=== PATIENT | female | born 1950 | race Caucasian/White ===

== ENCOUNTER 2022-06-17 15:27 | Inpatient (IN) ==
[2022-06-17 17:43] LABS: Calcium 9.2 MG/DL (8.5-10.1); Osmolality,Calculated 283.7 MOS/KG (273-304); Potassium 4.4 MMOL/L (3.5-5.1)
[2022-06-17 17:44] LABS: Basophils % 0.3 % (0.0-0.8); Eosinophils # 0.1 10*3/uL (0.0-0.87); Eosinophils % 1.6 % (0.00-10.9); Hematocrit 35.4 VOL% (35.7-47.0); Hemoglobin 10.1 GM/DL (12.0-16.0); Immature Granulocytes % 0.3 %; Immature Granulocytes Absolute 0.02 #; Lymphocytes % 12.8 % (21.3-54.2); Mean Corpuscular HGB Conc 28.5 GM/DL (32-36); Mean Corpuscular Volume 76.5 FL (87-102); Mean Platelet Volume 10.9 FL (9.6-12.0); Monocytes # 0.6 10*3/uL (0.11-0.8); Monocytes % 7.8 % (1.7-12.7); Neutrophils % 77.2 % (38.7-73.9); Platelet Count 269 T/CUMM (130-400); Red Blood Count 4.63 MC/CUMM (3.8-5.5); Red Cell Distribution Width 16.2 % (9.3-17.3); White Blood Count 7.6 T/CUMM (4-12)
[2022-06-17] MEDS ORDERED: MORPHINE 2 MG/1 ML SYRINGE IV STA (18:17)
[2022-06-17] MEDS ORDERED: FUROSEMIDE 40 MG/4 ML VIAL IV STA ×2 (18:17→19:48)
[2022-06-17] MEDS ORDERED: ONDANSETRON 4 MG/2 ML VIAL IV STA (18:17)
[2022-06-17] MEDS ORDERED: ACETAMINOPHEN 325 MG TABLET PO PRN (19:44)
[2022-06-17] MEDS ORDERED: NITROGLYCERIN SL 0.4 MG TABLET SL PRN (19:47)
[2022-06-17] MEDS ORDERED: ENOXAPARIN 40 MG/0.4 ML SYRINGE SUBCUT SCH (21:00)
[2022-06-17 22:18] LABS: Calcium 9.3 MG/DL (8.5-10.1); Potassium 4.1 MMOL/L (3.5-5.1)
[2022-06-17] MEDS: OSELTAMIVIR 30 MG CAPSULE PO SCH (22:43)
[2022-06-17] MEDS: ATORVASTATIN 80 MG TABLET PO SCH (22:44)
[2022-06-18 05:18] LABS: Basophils % 0.4 % (0.0-0.8); Eosinophils # 0.3 10*3/uL (0.0-0.87); Mean Corpuscular Volume 76.2 FL (87-102)
[2022-06-18 05:58] LABS: Hemoglobin 8.8 GM/DL (12.0-16.0); Immature Granulocytes % 0.6 %; Immature Granulocytes Absolute 0.04 #; Lymphocytes # 1.3 10*3/uL (1.4-4.0); Lymphocytes % 18.1 % (21.3-54.2); Mean Corpuscular HGB Conc 28.6 GM/DL (32-36); Mean Platelet Volume 10.7 FL (9.6-12.0); Monocytes # 0.8 10*3/uL (0.11-0.8); Monocytes % 11.6 % (1.7-12.7); Neutrophils % 65.3 % (38.7-73.9); Platelet Count 226 T/CUMM (130-400); Red Blood Count 4.04 MC/CUMM (3.8-5.5); Red Cell Distribution Width 16.2 % (9.3-17.3); White Blood Count 7.1 T/CUMM (4-12)
[2022-06-18 06:00] LABS: Hematocrit 30.8 VOL% (35.7-47.0)
[2022-06-18 06:09] LABS: Risk Ratio 2.64; Thyroid Stimulating Hormone 1.41 uIU/ml (0.358-3.74); VLDL Cholesterol 20.8 MG/DL
[2022-06-18] MEDS ORDERED: carvediloL 12.5 MG TABLET PO SCH (08:00)
[2022-06-18] MEDS ORDERED: CLOPIDOGREL 75 MG TABLET PO SCH (09:00)
[2022-06-18] MEDS: FUROSEMIDE 40 MG/4 ML VIAL IV SCH ×2 (10:20→17:39)
[2022-06-18] MEDS: OSELTAMIVIR 30 MG CAPSULE PO SCH ×2 (10:21→22:49)
[2022-06-18] MEDS: PANTOPRAZOLE 40 MG TABLET PO SCH (10:21)
[2022-06-18] MEDS: SERTRALINE 100 MG TABLET PO SCH (10:21)
[2022-06-18] MEDS: DAPAGLIFLOZIN 10 MG TABLET PO SCH (10:21)
[2022-06-18] MEDS: APIXABAN 5 MG TABLET PO SCH ×2 (10:21→22:48)
[2022-06-18] MEDS: SOTALOL 80 MG TABLET PO SCH ×2 (10:21→22:49)
[2022-06-18] MEDS: ASPIRIN EC 81 MG TABLET PO SCH (10:21)
[2022-06-18] MEDS: carvediloL 3.125 MG TABLET PO SCH ×2 (10:21→17:38)
[2022-06-18] MEDS: ONDANSETRON 4 MG/2 ML VIAL IV PRN (11:29)
[2022-06-18] MEDS: MORPHINE 2 MG/1 ML SYRINGE IV PRN (11:29)
[2022-06-18] MEDS ORDERED: GLUCAGON 1 MG VIAL IM PRN (14:29)
[2022-06-18] MEDS ORDERED: DEXTROSE 10% 250 ML BAG IV PRN (14:29)
[2022-06-18] MEDS: ALBUTEROL/IPRATROPIUM 3 ML NEB RESP TX PRN (21:36)
[2022-06-18] MEDS: guaiFENesin 200 MG/10 ML UDCUP PO PRN (22:49)
[2022-06-18] MEDS: ATORVASTATIN 80 MG TABLET PO SCH (22:49)
[2022-06-19] MEDS: ALBUTEROL/IPRATROPIUM 3 ML NEB RESP TX PRN (08:40)
[2022-06-19] MEDS: FUROSEMIDE 40 MG/4 ML VIAL IV SCH ×2 (09:28→18:24)
[2022-06-19] MEDS: ONDANSETRON 4 MG/2 ML VIAL IV PRN (09:29)
[2022-06-19] MEDS: DAPAGLIFLOZIN 10 MG TABLET PO SCH (09:30)
[2022-06-19] MEDS: SERTRALINE 100 MG TABLET PO SCH (09:30)
[2022-06-19] MEDS: SOTALOL 80 MG TABLET PO SCH ×2 (09:30→20:53)
[2022-06-19] MEDS: MORPHINE 2 MG/1 ML SYRINGE IV PRN (09:30)
[2022-06-19] MEDS: guaiFENesin 200 MG/10 ML UDCUP PO PRN (09:30)
[2022-06-19] MEDS: ASPIRIN EC 81 MG TABLET PO SCH (09:31)
[2022-06-19] MEDS: APIXABAN 5 MG TABLET PO SCH ×2 (09:31→20:53)
[2022-06-19] MEDS: carvediloL 3.125 MG TABLET PO SCH ×2 (09:31→18:25)
[2022-06-19] MEDS: OSELTAMIVIR 30 MG CAPSULE PO SCH ×2 (09:31→20:53)
[2022-06-19] MEDS: PANTOPRAZOLE 40 MG TABLET PO SCH (09:31)
[2022-06-19 09:33] LABS: Calcium 9.2 MG/DL (8.5-10.1); Osmolality,Calculated 274.1 MOS/KG (273-304); Potassium 3.2 MMOL/L (3.5-5.1)
[2022-06-19 09:37] LABS: Basophils % 0.3 % (0.0-0.8); Eosinophils # 0.4 10*3/uL (0.0-0.87); Eosinophils % 4.6 % (0.00-10.9); Immature Granulocytes % 0.7 %; Immature Granulocytes Absolute 0.05 #; Lymphocytes # 1.3 10*3/uL (1.4-4.0); Lymphocytes % 16.7 % (21.3-54.2); Mean Corpuscular HGB Conc 28.4 GM/DL (32-36); Mean Corpuscular Volume 75.5 FL (87-102); Mean Platelet Volume 10.5 FL (9.6-12.0); Monocytes # 0.6 10*3/uL (0.11-0.8); Monocytes % 8.3 % (1.7-12.7); NRBC # 0.02 10*3/uL; Neutrophils % 69.4 % (38.7-73.9); Platelet Count 245 T/CUMM (130-400); Red Blood Count 4.24 MC/CUMM (3.8-5.5); Red Cell Distribution Width 16.6 % (9.3-17.3); White Blood Count 7.6 T/CUMM (4-12)
[2022-06-19 09:39] LABS: Hemoglobin 9.1 GM/DL (12.0-16.0)
[2022-06-19 09:58] LABS: Hypochromia 1+; Microcytosis 1+; Ovalocytes Slight
[2022-06-19 09:59] LABS: Platelet Estimate Normal
[2022-06-19] MEDS ORDERED: MAGNESIUM SULF RIDER 4 GM/100 ML PREMIX IV PRN (12:59)
[2022-06-19] MEDS ORDERED: MAGNESIUM SULF RIDER 2 GM/50 ML PREMIX IV PRN (12:59)
[2022-06-19] MEDS: ALBUTEROL/IPRATROPIUM 3 ML NEB RESP TX SCH ×2 (13:15→19:10)
[2022-06-19] MEDS: POTASSIUM CHLORIDE 20 MEQ TABLET PO PRN ×3 (14:10→18:25)
[2022-06-19] MEDS: ATORVASTATIN 80 MG TABLET PO SCH (20:53)
[2022-06-20] MEDS: ALBUTEROL/IPRATROPIUM 3 ML NEB RESP TX SCH ×4 (00:25→21:24)
[2022-06-20 05:21] LABS: Calcium 9.3 MG/DL (8.5-10.1); Osmolality,Calculated 275.4 MOS/KG (273-304); Potassium 3.9 MMOL/L (3.5-5.1)
[2022-06-20 05:34] LABS: Basophils % 0.3 % (0.0-0.8); Eosinophils # 0.3 10*3/uL (0.0-0.87); Eosinophils % 4.1 % (0.00-10.9); Hematocrit 30.5 VOL% (35.7-47.0); Hemoglobin 8.8 GM/DL (12.0-16.0); Immature Granulocytes % 0.5 %; Immature Granulocytes Absolute 0.04 #; Lymphocytes # 1.4 10*3/uL (1.4-4.0); Lymphocytes % 18.1 % (21.3-54.2); Mean Corpuscular HGB Conc 28.9 GM/DL (32-36); Mean Corpuscular Volume 75.5 FL (87-102); Mean Platelet Volume 10.3 FL (9.6-12.0); Monocytes # 0.6 10*3/uL (0.11-0.8); Monocytes % 8.4 % (1.7-12.7); Neutrophils % 68.6 % (38.7-73.9); Platelet Count 248 T/CUMM (130-400); Red Blood Count 4.04 MC/CUMM (3.8-5.5); Red Cell Distribution Width 16.7 % (9.3-17.3); White Blood Count 7.5 T/CUMM (4-12)
[2022-06-20] MEDS: SERTRALINE 100 MG TABLET PO SCH (09:25)
[2022-06-20] MEDS: OSELTAMIVIR 30 MG CAPSULE PO SCH ×2 (09:25→21:33)
[2022-06-20] MEDS: SOTALOL 80 MG TABLET PO SCH ×2 (09:26→21:33)
[2022-06-20] MEDS: carvediloL 3.125 MG TABLET PO SCH ×2 (09:26→16:25)
[2022-06-20] MEDS: FUROSEMIDE 40 MG/4 ML VIAL IV SCH ×2 (09:26→16:26)
[2022-06-20] MEDS: DAPAGLIFLOZIN 10 MG TABLET PO SCH (09:26)
[2022-06-20] MEDS: ASPIRIN EC 81 MG TABLET PO SCH (09:26)
[2022-06-20] MEDS: APIXABAN 5 MG TABLET PO SCH ×2 (09:26→21:33)
[2022-06-20] MEDS: PANTOPRAZOLE 40 MG TABLET PO SCH (09:26)
[2022-06-20] MEDS ORDERED: POLYVINYL 0.5%/POVIDONE 0.6% OPH SOLN 15 ML BOTTLE RIGHT EYE PRN (10:00)
[2022-06-20] MEDS: FLUTICASONE 50 MCG NASAL SPRAY 16 GM BOTTLE BOTH NARES SCH ×2 (10:51→21:33)
[2022-06-20] MEDS: ATORVASTATIN 80 MG TABLET PO SCH (21:33)
[2022-06-21] MEDS: ALBUTEROL/IPRATROPIUM 3 ML NEB RESP TX SCH ×4 (00:43→19:16)
[2022-06-21 05:34] LABS: Osmolality,Calculated 285.7 MOS/KG (273-304); Potassium 2.9 MMOL/L (3.5-5.1)
[2022-06-21 05:56] LABS: Basophils % 0.4 % (0.0-0.8); Eosinophils # 0.4 10*3/uL (0.0-0.87); Eosinophils % 6.2 % (0.00-10.9); Hematocrit 31.7 VOL% (35.7-47.0); Hemoglobin 9.3 GM/DL (12.0-16.0); Immature Granulocytes % 0.5 %; Immature Granulocytes Absolute 0.03 #; Mean Corpuscular HGB Conc 29.3 GM/DL (32-36); Mean Corpuscular Volume 74.9 FL (87-102); Mean Platelet Volume 10.5 FL (9.6-12.0); Monocytes # 0.6 10*3/uL (0.11-0.8); Monocytes % 10.4 % (1.7-12.7); Neutrophils % 64.5 % (38.7-73.9); Platelet Count 247 T/CUMM (130-400); Red Blood Count 4.23 MC/CUMM (3.8-5.5); Red Cell Distribution Width 16.9 % (9.3-17.3); White Blood Count 5.7 T/CUMM (4-12)
[2022-06-21] MEDS ORDERED: POTASSIUM CHLORIDE 20 MEQ TABLET PO ONE (06:28)
[2022-06-21] MEDS ORDERED: LIDOCAINE 1% 5 ML VIAL ONE (06:31)
[2022-06-21] MEDS ORDERED: propofoL 200 MG/20 ML VIAL IV ONE (06:31)
[2022-06-21] MEDS ORDERED: FAMOTIDINE 20 MG/2 ML VIAL IV ONE (06:58)
[2022-06-21] MEDS: FUROSEMIDE 40 MG/4 ML VIAL IV SCH ×2 (09:46→16:38)
[2022-06-21] MEDS: APIXABAN 5 MG TABLET PO SCH ×2 (10:27→20:49)
[2022-06-21] MEDS: OSELTAMIVIR 30 MG CAPSULE PO SCH ×2 (10:28→20:49)
[2022-06-21] MEDS: SOTALOL 80 MG TABLET PO SCH ×2 (10:28→20:49)
[2022-06-21] MEDS: PANTOPRAZOLE 40 MG TABLET PO SCH (10:28)
[2022-06-21] MEDS: POTASSIUM CHLORIDE 20 MEQ TABLET PO PRN (10:28)
[2022-06-21] MEDS: ASPIRIN EC 81 MG TABLET PO SCH (10:28)
[2022-06-21] MEDS: DAPAGLIFLOZIN 10 MG TABLET PO SCH (10:28)
[2022-06-21] MEDS: SERTRALINE 100 MG TABLET PO SCH (10:29)
[2022-06-21] MEDS: carvediloL 3.125 MG TABLET PO SCH ×2 (10:29→17:47)
[2022-06-21] MEDS: FLUTICASONE 50 MCG NASAL SPRAY 16 GM BOTTLE BOTH NARES SCH ×2 (10:29→20:49)
[2022-06-21] MEDS: SODIUM CHLORIDE 0.9% 1,000 ML IV SCH (13:28)
[2022-06-21] MEDS ORDERED: ZALEPLON 5 MG CAPSULE PO PRN (20:17)
[2022-06-21] MEDS: ATORVASTATIN 80 MG TABLET PO SCH (20:49)
[2022-06-22] MEDS: ALBUTEROL/IPRATROPIUM 3 ML NEB RESP TX SCH ×2 (00:08→07:45)
[2022-06-22 05:53] LABS: Calcium 9.2 MG/DL (8.5-10.1); Osmolality,Calculated 285.1 MOS/KG (273-304); Potassium 3.2 MMOL/L (3.5-5.1)
[2022-06-22 06:09] LABS: Basophils % 0.4 % (0.0-0.8); Eosinophils # 0.4 10*3/uL (0.0-0.87); Eosinophils % 7.3 % (0.00-10.9); Hematocrit 31.7 VOL% (35.7-47.0); Immature Granulocytes % 0.4 %; Immature Granulocytes Absolute 0.02 #; Lymphocytes # 1.3 10*3/uL (1.4-4.0); Mean Corpuscular HGB Conc 28.7 GM/DL (32-36); Mean Corpuscular Volume 75.8 FL (87-102); Mean Platelet Volume 10.5 FL (9.6-12.0); Monocytes # 0.6 10*3/uL (0.11-0.8); Monocytes % 11.6 % (1.7-12.7); Neutrophils % 54.3 % (38.7-73.9); Platelet Count 259 T/CUMM (130-400); Red Blood Count 4.18 MC/CUMM (3.8-5.5); Red Cell Distribution Width 17.2 % (9.3-17.3); White Blood Count 4.9 T/CUMM (4-12)
[2022-06-22 06:11] LABS: Hemoglobin 9.1 GM/DL (12.0-16.0)
[2022-06-22 06:26] LABS: Hypochromia Slight; Microcytosis 1+; Platelet Estimate Normal
[2022-06-22 08:13] VITALS: BP 128/56
[2022-06-22] MEDS: POTASSIUM CHLORIDE 20 MEQ TABLET PO PRN (09:07)
[2022-06-22] MEDS: SERTRALINE 100 MG TABLET PO SCH (09:07)
[2022-06-22] MEDS: OSELTAMIVIR 30 MG CAPSULE PO SCH (09:07)
[2022-06-22] MEDS: ASPIRIN EC 81 MG TABLET PO SCH (09:07)
[2022-06-22] MEDS: PANTOPRAZOLE 40 MG TABLET PO SCH (09:07)
[2022-06-22] MEDS: DAPAGLIFLOZIN 10 MG TABLET PO SCH (09:07)
[2022-06-22] MEDS: APIXABAN 5 MG TABLET PO SCH (09:07)
[2022-06-22] MEDS: carvediloL 3.125 MG TABLET PO SCH (09:08)
[2022-06-22] MEDS: SODIUM CHLORIDE 0.9% 1,000 ML IV SCH (09:08)
[2022-06-22] MEDS: SOTALOL 80 MG TABLET PO SCH (09:14)
[2022-06-22] MEDS: FLUTICASONE 50 MCG NASAL SPRAY 16 GM BOTTLE BOTH NARES SCH (09:14)
[2022-06-22] MEDS: FUROSEMIDE 40 MG/4 ML VIAL IV SCH (11:51)
== END 2022-06-22 11:47 | disposition home or self-care (01) | DRG 291 ==
LOC: N.ED 15:27 → N.EDINP 19:44 → N.TELEN 20:11
PROVIDERS: ADMIT Internal Medicine Geriatric Medicine; ATTEND Internal Medicine Geriatric Medicine